=== PATIENT | female | born 1985 ===

== ENCOUNTER 2024-12-20 09:14 | Emergency (ER) | payer OTHER ==
[~2024-12-20] VITALS: Ht 162.6 cm; Wt 75.7 kg
[2024-12-20 09:57] VITALS: BP 104/72; O2SAT 98
[2024-12-20] MEDS ORDERED: KETOROLAC TROMETHAMINE 60 MG VIAL IM ONE (10:30)
[2024-12-20] MEDS ORDERED: ORPHENADRINE CITRATE 30 MG/ML AMPUL IM ONE (10:30)
[2024-12-20] MEDS ORDERED: KETO10TA2 PO (11:28)
== END 2024-12-20 13:14 | disposition home or self-care (01) ==
LOC: ER 10:53
DX: M54.89 Other dorsalgia (principal)

== ENCOUNTER 2025-04-29 10:57 | Outpatient (CLI) | payer OTHER ==
[~2025-04-29 10:57] MED LIST: KETO10TA2 PO
== END 2025-04-29 11:01 | disposition home or self-care (01) ==
LOC: PRENATAL 10:57
PROVIDERS: ATTEND Obstetrics & Gynecology Maternal & Fetal Medicine
DX: O36.80X0 Pregnancy with inconclusive fetal viability, not applicable or unspecified (principal); Z36.82 Encounter for antenatal screening for nuchal translucency; Z14.8 Genetic carrier of other disease; O09.521 Supervision of elderly multigravida, first trimester; O24.419 Gestational diabetes mellitus in pregnancy, unspecified control; O36.1910 Maternal care for other isoimmunization, first trimester, not applicable or unspecified; Z3A.12 12 weeks gestation of pregnancy